=== PATIENT | male | born 1945 | race Native Hawaiian/Other Pacific Islander ===

== ENCOUNTER 2017-04-02 11:11 | Outpatient (CLI) | payer OTHER ==
[~2017-04-02 11:11] MED LIST: ACET5TAB36 PO; ALPR0.2566 PO; DIOVAN HC1 PO; FLUT0.05 NAS; MOBIC7.5 M1 PO; OMEP40CA PO; PANT40TA PO; RANI150T78 PO; SIMV20TA2 PO; TRAM50TA PO; TRIAMCINOLON0.5 % TOP
[2017-04-02 11:31] LABS: PLATELET COUNT 170 K/uL (142-355)
[2017-04-02 12:06] LABS: POTASSIUM 4.6 mmol/L (3.6-5.2)
== END 2017-04-02 21:16 | disposition home or self-care (01) ==
LOC: LABW 11:11
PROVIDERS: Family Medicine
DX: Z00.00 Encounter for general adult medical examination without abnormal findings (principal); E55.9 Vitamin D deficiency, unspecified; E78.6 Lipoprotein deficiency
CPT/HCPCS: 36415; 80053; 80061; 81000; 82043; 82306; 82570; 83735; 84153; 84439; 84443; 84550; 85027

== ENCOUNTER 2018-02-10 13:15 | Emergency (ER) | payer OTHER ==
[~2018-02-10] VITALS: Ht 170.2 cm; Wt 74.8 kg
[2018-02-10 13:21] VITALS: TEMP 97.5
[2018-02-10 13:57] LABS: PLATELET COUNT 172 K/uL (142-355)
[2018-02-10 14:02] LABS: POTASSIUM 4.8 mmol/L (3.6-5.2); SODIUM 136 mmol/L (136-145)
[2018-02-10 17:40] VITALS: BP 133/96
== END 2018-02-10 17:40 | disposition home or self-care (01) ==
LOC: ED 13:15
PROC: 0S9D3ZX Drainage of Left Knee Joint, Percutaneous Approach, Diagnostic (ICD-10-PCS; principal; 2018-02-10)
DX: S80.02XA Contusion of left knee, initial encounter (principal); W01.0XXA Fall on same level from slipping, tripping and stumbling without subsequent striking against object, initial encounter; Y92.89 Other specified places as the place of occurrence of the external cause; M25.462 Effusion, left knee
CPT/HCPCS: 36415; 80053; 81000; 82550; 82553; 83880; 84484; 85027; 93005; 99284

== ENCOUNTER 2018-03-25 11:45 | Outpatient (CLI) | payer OTHER ==
[2018-03-25 13:14] LABS: POTASSIUM 3.9 mmol/L (3.6-5.2)
== END 2018-03-25 20:18 | disposition home or self-care (01) ==
LOC: RAD 11:45
PROVIDERS: Family Medicine
DX: J44.9 Chronic obstructive pulmonary disease, unspecified (principal); R06.02 Shortness of breath
CPT/HCPCS: 36415; 80048; 83880

== ENCOUNTER 2018-03-28 17:48 | Outpatient (CLI) | payer OTHER ==
[2018-03-28] MEDS ORDERED: FURO20TA67 PO (18:45)
[2018-03-28] MEDS ORDERED: APIX1TAB PO (18:45)
[2018-03-28] MEDS ORDERED: CARV12.5 PO (18:45)
[2018-03-28] MEDS ORDERED: ALBU90AE13 INH (18:46)
== END 2018-03-28 17:54 | disposition short-term general hospital (02) ==
LOC: AMB 17:48
DX: J44.1 Chronic obstructive pulmonary disease with (acute) exacerbation (principal)
CPT/HCPCS: A0425; A0427

== ENCOUNTER 2018-03-28 17:56 | Emergency (ER) | payer OTHER ==
[~2018-03-28] VITALS: Ht 170.2 cm; Wt 74.8 kg
[2018-03-28 18:16] LABS: PLATELET COUNT 158 K/uL (142-355)
[2018-03-28 18:22] LABS: POTASSIUM 4.7 mmol/L (3.6-5.2); SODIUM 131 mmol/L (136-145)
[2018-03-28] MEDS ORDERED: APIX1TAB PO (18:45)
[2018-03-28] MEDS ORDERED: FURO20TA67 PO (18:45)
[2018-03-28] MEDS ORDERED: CARV12.5 PO (18:45)
[2018-03-28] MEDS ORDERED: ALBU90AE13 INH (18:46)
[2018-03-28 23:00] VITALS: BP 115/85; TEMP 98.1
== END 2018-03-28 23:02 | disposition short-term general hospital (02) ==
LOC: ED 17:56
DX: I50.9 Heart failure, unspecified (principal); J90 Pleural effusion, not elsewhere classified; I48.91 Unspecified atrial fibrillation
CPT/HCPCS: 36415; 80053; 81000; 82550; 82553; 83880; 84484; 85027; 93005; 96374; 99284; J1940

== ENCOUNTER 2018-03-28 23:01 | Outpatient (CLI) | payer OTHER ==
[~2018-03-28 23:01] MED LIST changes: +ALBU90AE13 INH; +APIX1TAB PO; +CARV12.5 PO; +FURO20TA67 PO
== END 2018-03-29 00:12 | disposition short-term general hospital (02) ==
LOC: AMB 23:01
DX: I50.9 Heart failure, unspecified (principal); J90 Pleural effusion, not elsewhere classified; I48.91 Unspecified atrial fibrillation
CPT/HCPCS: A0425; A0427

== ENCOUNTER 2018-04-15 12:24 | Emergency (ER) | payer OTHER ==
[~2018-04-15] VITALS: Ht 170.2 cm; Wt 74.8 kg
[2018-04-15 12:30] VITALS: TEMP 98
[2018-04-15] MEDS ORDERED: APIX1TAB PO (12:40)
[2018-04-15 13:19] LABS: POTASSIUM 3.8 mmol/L (3.6-5.2); SODIUM 139 mmol/L (136-145)
[2018-04-15 13:24] LABS: PLATELET COUNT 106 K/uL (142-355)
[2018-04-15 14:27] VITALS: BP 127/97
== END 2018-04-15 14:54 | disposition home or self-care (01) ==
LOC: ED 12:24
PROVIDERS: Family Medicine
DX: I50.9 Heart failure, unspecified (principal); I42.0 Dilated cardiomyopathy; I48.91 Unspecified atrial fibrillation; I45.19 Other right bundle-branch block
CPT/HCPCS: 36415; 80053; 81000; 83880; 84484; 85027; 93005; 96374; 99284; J1940